=== PATIENT | female | born 1980 | race Caucasian/White ===

== ENCOUNTER 2016-06-19 05:30 | Inpatient (IN) | payer OTHER ==
[2016-06-19] MEDS ORDERED: CITRIC ACID/SODIUM CITRATE 30 ML UDCUP PO ONE (05:51)
[2016-06-19] MEDS ORDERED: LR 500 ML IV ONE (05:51)
[2016-06-19] MEDS ORDERED: ceFAZolin 2 GM/DEXTROSE 100 ML IV ONE (05:51)
[2016-06-19] MEDS ORDERED: LR 1,000 ML IV SCH (06:00)
[2016-06-19 06:29] LABS: % IMMATURE GRANULYOCYTES 0.6 % (0.0-1.1); ABSOLUTE IMMATURE GRANULOCYTES 0.05 10^3/uL (0.00-0.10); ADD DIFF? NO; ADD MORPH? NO; ADD SCAN? NO; ATYPICAL LYMPHOCYTE FLAG 0 (0-99); FRAGMENT RBC FLAG 0 (0-99); HEMATOCRIT 35.1 % (38.0-47.0); HEMOGLOBIN 11.5 g/dL (12.6-16.3); LEFT SHIFT FLG 0 (0-99); LIPEMIA HEMOLYSIS FLAG 80 (0-99); MEAN CELL HEMOGLOBIN 27.1 pg (27.9-34.1); MEAN CELL HEMOGLOBIN CONCENTR. 32.8 g/dL (32.4-36.7); MEAN CELL VOLUME 82.6 fL (81.5-99.8); MEAN PLATELET VOLUME 10.4 fL (8.7-11.7); PLATELET CLUMPS FLAG 0 (0-99); PLATELET COUNT 158 10^3/uL (150-400); RED BLOOD CELL COUNT 4.25 10^6/uL (4.18-5.33); RED CELL DISTRIBUTION WIDTH 14.4 % (11.5-15.2)
[2016-06-19] MEDS ORDERED: SIMETHICONE 80 MG TAB CHEW PO PRN (07:33)
[2016-06-19] MEDS ORDERED: PROMETHAZINE HCL 25 MG/ML INJ IVP PRN (07:33)
[2016-06-19] MEDS ORDERED: morphINE PF 5 MG/10 ML INJ ONE (07:45)
[2016-06-19] MEDS ORDERED: OXYTOCIN 100 UNITS/10 ML VIAL ONE (08:12)
[2016-06-19] MEDS ORDERED: fentaNYL 100 MCG/2 ML INJ ONE (08:21)
--- NOTE | 2016-06-19 08:43 | OBPROC ---
- Delivery Pre-op Diagnoses: repeat C/S Post-op Diagnoses: Repeat C/S Procedure: Repeat Surgeon: Muna Elliott Double Back Operator: Glory Hughes Anesthesiologist: Ayush Parkinson Lobster Man/BALLISTICS EXPERT: Nanci Hardin Anesthesia: Epidural Complications: None Specimen(s)/Path: Fallopian Tube(s) IV Fluid (ml): 1,000 EBL: 800 - Info A Delivery Date: 06/19/16 Delivery Time: 08:18 Sex of Infant: Male Score (1 Min): 9 Score (5 Min): 9
[2016-06-19] MEDS: KETOROLAC 30 MG/1 ML SDV IVP SCH ×2 (08:45→14:33)
[2016-06-19] MEDS ORDERED: morphINE PCA 30 MG/30 ML PCA IV PRN (08:50)
[2016-06-19] MEDS ORDERED: NALOXONE HCL 0.4 MG/ML INJ IVP PRN (08:50)
[2016-06-19] MEDS ORDERED: ONDANSETRON 4 MG/2 ML VIAL IVP PRN (08:50)
--- NOTE | 2016-06-19 10:06 | GOP ---
[f rep st] OPERATIVE REPORT DATE OF OPERATION: 06/19/2016 SURGEON: Muna Mario MD LPN CMA: Glory Hughes, certified nurse rn transport. ANESTHESIA: Spinal. PREOPERATIVE DIAGNOSIS: Intrauterine at 38-2/7 weeks gestation with previous section and previous occipital decompression and desires sterility. POSTOPERATIVE DIAGNOSIS: Intrauterine at 38-2/7 weeks gestation with previous section and previous occipital decompression and desires sterility. PROCEDURE PERFORMED: Repeat low transverse section and bilateral tubal ligation. FINDINGS: Normal uterus, fallopian tubes, and ovaries. Viable male , Apgars 8 and 8. Weight 6 pounds, 11 ounces. ESTIMATED BLOOD LOSS: 800 mL. INDICATIONS: Nicolasa is a 35-year-old, G3, P2, female who is at 38 and 2/7 weeks gestation. She has significant history of 2 previous sections, both performed at 38 weeks gestation secondary to her history of occipital decompression and a concern for increasing pressure upon her brain from the increasing gestation and potential brain herniation. The patient also desired repeat and bilateral tubal ligation. DESCRIPTION OF PROCEDURE: The patient was taken to the operating room where she was prepped and draped in normal sterile fashion in the dorsal supine position with a leftward tilt. A surgical time-out was performed verifying the patient's name, date of , planned procedure and site. The patient received 2 g of Ancef preoperatively. A Pfannenstiel skin incision was made with a scalpel and carried through to the underlying fascia. The fascia was incised in the midline and extended laterally. The superior aspect of the fascia was grasped with Britta clamps. The rectus muscles dissected off bluntly and with the Bovie cautery, the inferior aspect of the fascia was grasped with Britta clamps. The rectus muscles dissected off bluntly and with the Bovie cautery. The peritoneum was identified and divided. The bladder blade was placed. The vesicouterine peritoneum was incised with the Metzenbaum scissors, and a bladder flap was created digitally. Bladder blade was replaced. The uterus was incised. The uterine incision was extended laterally. The was delivered. The cord was clamped and cut. The was handed to the nurse practitioner. The placenta was delivered spontaneously. The uterus was exteriorized and cleared of all clots and debris. The uterine incision was reapproximated with 0 Monocryl in a running, locked fashion. The patient desired bilateral tubal ligation. The left fallopian tube was grasped with a Dominguez clamp. The mesosalpinx was incised and the tube was ligated and transected. The same procedure was performed on the patient's right side. The patient had normal tubal ends and hemostatic tubal ends. There was some bleeding of the uterine serosa from the uterine dissection off the anterior abdominal wall secondary to scarring in this area. Dissection was made hemostatic with 0 Monocryl. The uterus was returned to the abdomen. The gutters were cleared of all clots and debris. The uterine incision was reinspected and noted to be hemostatic. The subfascial spaces were inspected and noted to be hemostatic. The fascia was reapproximated with 0 Vicryl in a running fashion, and the subcutaneous tissue was irrigated and closed with 3-0 Monocryl and the skin was closed with 4-0 Monocryl. All counts were correct x2. COMPLICATIONS: None. OUTCOME: Stable to recovery room. /[id number]/MODL MTDD
[2016-06-19] MEDS ORDERED: OXYTOCIN/RINGERS LACTATE 20 UNIT/1,000 ML BAG IV ONE (10:08)
[2016-06-20] MEDS: KETOROLAC 30 MG/1 ML SDV IVP SCH ×2 (03:09→07:51)
[2016-06-20] MEDS: HYDROCODONE/APAP 5/325 TAB PO PRN ×3 (07:46→18:09)
[2016-06-20] MEDS: DOCUSATE SODIUM 100 MG CAP PO PRN ×2 (07:47→22:08)
--- NOTE | 2016-06-20 09:16 | SOAPPROG ---
SOAP Progress Note Assessment/Plan: Assessment: 35 y.o. s/p repeat C/S with BTL PPD/POD #1. Recovering well with good pain control Plan: Routine / post-op care. Begin Iron BID for anemia. well. 06/20/16 09:12 Subjective: Reports feeling well with good pain control and minimal vaginal bleeding. well. Has been out of bed and ambulating. Fuentes discontinued and IV hep locked. Eating and drinking well without nausea or vomiting. Appropriate mood and good support system. Objective: Vital Signs Temp Pulse Resp BP Pulse Ox 36.9 C 88 16 101/62 94 06/20/16 08:00 06/20/16 08:00 06/20/16 08:00 06/20/16 08:00 06/20/16 08:00 Laboratory Results 06/20/16 06:00 06/19/16 06/20/16 06/21/16 05:59 05:59 05:59 Intake Total 1200 Output Total 3300 Balance -2100 - Time Spent With Patient Time Spent With Patient: 20 minutes - Pending Discharge Pending Discharge Within 24 Hours: No Pending Discharge Within 48 Hours: Yes Pending Discharge Date: 06/22/16 Pending Discharge Time: 11:00 Physical Exam - Physical Exam General Appearance: WD/WN, alert, no apparent distress EENT: PERRL/EOMI, normal ENT inspection Neck: non-tender, full range of motion Respiratory: lungs clear, normal breath sounds Cardiac/Chest: regular rate, rhythm Abdomen: non-tender, soft Pelvic Exam: normal external exam Rectal: deferred Back: Normal inspection Skin: normal color, warm/dry Lymphatic: no adenopathy Extremities: normal range of motion, non-tender, normal inspection Neuro/Psych: alert, normal mood/affect, oriented x 3 ICD10 Worksheet Patient Problems: Problems Problem Status Onset delivery delivered Acute
[2016-06-20] MEDS: IBUPROFEN 600 MG TAB PO PRN ×3 (09:50→22:08)
[2016-06-20] MEDS: IRON POLYSAC/IRON HEME 28 MG TAB PO SCH ×2 (12:14→22:07)
[2016-06-21] MEDS: HYDROCODONE/APAP 5/325 TAB PO PRN ×2 (00:32→09:17)
[2016-06-21] MEDS: IBUPROFEN 600 MG TAB PO PRN ×2 (04:15→09:16)
[2016-06-21 05:55] VITALS: O2SAT 96
[2016-06-21 09:05] VITALS: BP 93/65; PULSE 79; RESP 18; TEMP 98.6
[2016-06-21] MEDS: IRON POLYSAC/IRON HEME 28 MG TAB PO SCH (09:16)
[2016-06-21] MEDS: DOCUSATE SODIUM 100 MG CAP PO PRN (09:16)
--- NOTE | 2016-06-21 09:16 | OBGCSDC ---
General Delivery Information - General Info : 3 Para: 3 Delivery Date: 06/19/16 Delivery Time: 08:18 Delivery Physician/CNM: Muna Elliott Commercial Sales Representative: Glory Hughes Admission Date: 06/19/16 Labs: Patient ABO/Rh A POSITIVE 06/19/16 05:45 Hct 28.2 % (38.0-47.0) L 06/20/16 06:00 - Info A Sex of : Male Score (1 Min): 9 Score (5 Min): 9 - Delivery IUP (Weeks): 39 weeks Number of Prior Sections: 2 Indications for Prior Section: Elective/Repeat, Other (Specify) Indications for Current Section: Elective/Repeat Procedures: LTCS Intra-op Complications: None EBL: 800 Anesthesia: Epidural Discharge Information - Discharge Information Discharge Medications: Ibuprofen, Vitamins, Vicodin Complications: none Condition: Good Instruction/Follow Up: Two Weeks Discharge Physician/CNM: Glory Hughes Discharge Date: 06/21/16 Dictated: No
== END 2016-06-21 10:40 | disposition home or self-care (01) | DRG 766 ==
LOC: FLD 05:30 → FOB 11:01
PROVIDERS: ADMIT Obstetrics & Gynecology; ATTEND Obstetrics & Gynecology
PROC: 0UB70ZZ Excision of Bilateral Fallopian Tubes, Open Approach (ICD-10-PCS; principal; 2016-06-19)
PROC: 10D00Z1 Extraction of Products of Conception, Low, Open Approach (ICD-10-PCS; principal; 2016-06-19)
DX: O34.211 Maternal care for low transverse scar from previous cesarean delivery (principal); O09.523 Supervision of elderly multigravida, third trimester; Z30.2 Encounter for sterilization; Z3A.38 38 weeks gestation of pregnancy; Z37.0 Single live birth
CPT/HCPCS: J0690; J1885; J2274; J2590; J3010

== ENCOUNTER → 2016-11-06 | Outpatient (CLI) | payer OTHER | LOC: CIMAGING 08:21 | PROVIDERS: ATTEND Internal Medicine | DX: R51 Headache (principal); Z98.1 Arthrodesis status | CPT/HCPCS: 72050-PO ==